=== PATIENT | male | born 1985 | race African-American/Black ===

== ENCOUNTER 2021-11-15 13:44 | Emergency (ER) | payer SELFPAY ==
[2021-11-15] VITALS (10 sets, daily range): BP systolic 104–119; BP diastolic 55–77; PULSE 60–111; RESP 16–24; TEMP 36.5; O2SAT 99–100
--- NOTE | ~2021-11-15 | CT_ITS ---
EXAMINATION: CTA chest PE protocol DATE: 11/15/2021 15:23 INDICATION: Left chest pain. TECHNIQUE: Computed tomography angiography (CTA) of the chest was performed with 100 mL Omnipaque-350 intravenous contrast timed to evaluate the pulmonary arteries. Coronal maximum intensity projection 3D-reconstructions were created by the technologist. Automated exposure control and iterative reconst ruction technique were employed. The dose-length product was 247.12 mGy-cm. COMPARISON: Chest 2 views 11/15/2021 FINDINGS: There is no pneumonia or pleural effusion. The heart size is normal. No pericardial effusio n. There is no pulmonary embolus. There is a benign bone island in T11 vertebral body. IMPRESSION: 1. No pulmonary embolus. Reviewed, dictated and finalized at location A. IMPRESSION: 1. No pulmonary embolus.
--- NOTE | ~2021-11-15 | XR_ITS ---
EXAMINATION: XR chest 2V DATE: 11/15/2021 14:31 INDICATION: Chest pain. TECHNIQUE: Frontal and lateral views of the chest were obtained. COMPARISON: None. FINDINGS: There is no pneumonia, pleural effusion, or pneumothorax. The heart size is normal. IMPRESSION: 1. No acute cardiopulmonary disease. Reviewed, dictated and finalized at location A.
--- NOTE | 2021-11-15 13:54 | ECG_ITS ---
Measurements Intervals [place] Rate: 66 P: 64 ID: 132 QRS: 27 QRSD: 93 T: 17 QT: 376 QTc: 395 Interpretive Statements SINUS RHYTHM WITH SINUS ARRHYTHMIA NORMAL ECG NO PREVIOUS ECG AVAILABLE FOR COMPARISON Electronically Signed On 11-15-2021 16:34:44 CDT by Vikas Vazquez M.D.
--- NOTE | 2021-11-15 14:26 | PC.NURSE ---
Pt to xray
[2021-11-15 14:31] LABS: Prothrombin Time 12.6 Seconds (11.1-14.7)
[2021-11-15 14:32] LABS: Alanine Aminotransferase 29 U/L (6-50); Albumin Level 4.6 g/dL (3.5-5.1); Alkaline Phosphatase 71 U/L (38-126); Anion Gap 10 mmol/L (8-16); Aspartate Amino Transferase 28 U/L (17-59); Bilirubin,Total 0.4 mg/dL (0.2-1.3); Blood Urea Nitrogen 11 mg/dL (9-20); Calcium 9.6 mg/dL (8.4-10.2); Carbon Dioxide 26 mmol/L (22-30); Chloride 104 mmol/L (98-107); Estimated CRCL calculation 81 ml/min; Estimated Glomerular Filt Rate > 60; Glucose 105 mg/dL (65-110); Lipase 42 U/L (23-300); Partial Thromboplastin Time 28.3 SECONDS (22.3-36.8); Potassium 4.3 mmol/L (3.4-5.0); Sodium 140 mmol/L (137-145)
[2021-11-15 14:35] LABS: Hemoglobin 14.3 g/dL (14.0-18.0); Immature Granulocyte Absolute 0.02 K/mm3 (0.00-0.031); Immature Granulocyte Percent A 0.2 % (0-0.5); Lymphocytes Absolute Auto 0.59 K/mm3 (0.9-3.2); Lymphocytes Percent Auto 7.1 % (18.3-44.2); Mean Corpuscular HGB Conc 31.8 g/dl (32-36); Mean Corpuscular Hemoglobin 30.4 pg (26-34); Mean Corpuscular Volume 95.7 fl (80-100); Mean Platelet Volume 10.9 fl (7.4-10.4); Monocytes Absolute Auto 0.3 K/mm3 (0.1-0.6); Monocytes Percent Auto 3.5 % (2.6-8.5); Neutrophils Absolute Auto 7.5 K/mm3 (1.3-6.7); Neutrophils Percent Auto 89.2 % (45.5-73.1); Platelet Count Result 168 k/mm3 (150-375); Red Cell Distribution Width 12.7 % (11.5-14.5); White Blood Count 8.4 K/mm3 (4.5-10.0)
[2021-11-15 14:43] LABS: Troponin I < 0.012 ng/mL (0.000-0.034)
[2021-11-15] MEDS: ASPIRIN 81 MG CHEWABLE TABLET 324 MG PO (14:50)
[2021-11-15] MEDS: KETOROLAC 30 MG/ML VIAL (*BKC) IV PUSH (14:57)
--- NOTE | 2021-11-15 14:57 | PC.NURSE ---
Pt blood sugar 41. Was given apple juice and ham sandwich
[2021-11-15 15:47] LABS: SARS-CoV-2 RNA PCR Negative
[2021-11-15 17:39] LABS: Troponin I < 0.012 ng/mL (0.000-0.034)
[2021-11-15 17:40] LABS: Amphetamine Screen Urine Negative (Negative); Barbiturate Screen Urine Negative (Negative); Benzodiazepines Screen Urine Negative (Negative); Cannabinoid Screen Urine Positive (Negative); Cocaine Screen Urine Negative (Negative); Methadone Screen Urine Negative (Negative); Opiate Screen Urine Negative (Negative); Phencyclidine Screen Urine Negative (Negative)
--- NOTE | 2021-11-15 18:35 | ED.CHESTPAIN ---
HPI - Chest Pain General Chief Complaint: Chest Pain Stated Complaint: chest pain, dizziness Time Seen by Provider: 11/15/21 14:39 Source: RN notes reviewed History of Present Illness HPI narrative: Patient presents emergency department from assisted in police custody for chest pain. History is per the patient as well as a consult police they spoke with the patient was placed under arrest today under a weapons charge they taken the patient to the police department amities at the Police Department when he found out he was going to have to go to assisted he began to experience chest pain most of his chest. Patient states the pain is located left side of his chest and is described as sharp and stabbing is worse when he takes a deep inspiration radiates up into his neck. He denies any fevers or chills vision changes abdominal pain nausea vomiting or any other symptoms Related Data Allergies Allergy/AdvReac Type Severity Reaction Status Date / Time No Known Allergies Allergy Verified 11/15/21 14:00 Review of Systems Review of Systems: Gen.: Denies fevers or chills Eyes: Denies eye pain or visual change ENT: Denies congestion Respiratory: Denies shortness of breath or cough CV: See HPI GI: Denies abdominal pain nausea, emesis or diarrhea Musculoskeletal: Denies back pain or muscle pain Neuro: Denies numbness, tingling, weakness or focal weakness Skin: Denies rash Except as documented, all other systems reviewed and negative Exam Narrative: APPEARANCE: No acute distress, nontoxic, resting in bed EYES: EOMI HEENT: Normocephalic, atraumatic, OMM RESPIRATORY: No respiratory distress Clear to auscultation bilaterally with no rhonchi wheezing or rales. CARDIOVASCULAR: Regular rate and rhythm without murmurs rubs or gallops. Chest: Tender palpation left anterior lateral chest wall pain increased with deep inspiration ABDOMINAL: Soft, nontender, nondistended, no rebound or guarding MUSCULOSKELETAl: Moves all extremities. No clubbing, cyanosis or edema. NEURO: Awake and alert. Following commands, speech normal, no focal deficits SKIN:: Warm, dry. No rashes lesions or abrasions PSYCHIATRIC: Normal affect/mood, Course Course Emergency Course: Discussed with police surgeon with patient patient had no trauma he had been in his car and got out of the car on his own and has been in police custody of the police station when his pain occurred after he found out he was going to be placed in assisted Patient states pain is improved with medication Discussed with patient results of workup and diagnosis. Discussed need for follow-up with primary care, proper use of medication, and reasons to return to the emergency department. Patient understands and agrees to current treatment plan Vital Signs Vital signs: Vital Signs Temperature 97.7 F 11/15/21 13:58 Pulse Rate 62 11/15/21 13:58 Respiratory Rate 16 11/15/21 13:58 Blood Pressure 110/63 11/15/21 13:58 Pulse Oximetry 100 11/15/21 13:58 Oxygen Delivery Room Air 11/15/21 13:58 Temperature 97.7 F 11/15/21 13:58 Pulse Rate 66 11/15/21 18:47 Respiratory Rate 23 H 11/15/21 16:18 Blood Pressure 108/55 L 11/15/21 18:47 Pulse Oximetry 100 11/15/21 18:47 Oxygen Delivery Room Air 11/15/21 13:58 MDM - Chest Pain MDM Narrative Medical decision making narrative: Patient's EKGs and labs are without significant high risk changes. Cardiac risk factors reviewed. Patient is felt likely low risk for ACS and reasonable for further risk stratification testing as an outpatient. CTA of the chest shows no pulmonary embolism aneurysm or pneumonia patient is felt to be a reasonable candidate for continued evaluation as an outpatient Lab Data Result diagrams: 11/15/21 14:11 11/15/21 14:11 Labs: Lab Results 11/15/21 11/15/21 11/15/21 Range/Units 14:11 14:11 14:11 WBC 8.4 (4.5-10.0) K/mm3 RBC 4.70 (4.6-6.20) M/mm3 Hgb 14.3 (14.0-18.0)
== END 2021-11-15 19:07 ==
PROVIDERS: Emergency Provider Emergency Medicine; PCP Emergency Medicine
DX: R07.89 Other chest pain (principal); Z20.822 Contact with and (suspected) exposure to COVID-19
CPT/HCPCS: 36415; 71046; 71275; 80053; 80307; 83690; 84484; 85025; 85610; 85730; 93005; 96374; 99284; A9270; C9803; J1885; Q9967; U0003; U0005

== ENCOUNTER 2021-11-17 12:37 | Emergency (ER) | payer SELFPAY ==
[2021-11-17] VITALS (17 sets, daily range): BP systolic 106–146; BP diastolic 67–98; PULSE 51–78; RESP 16–26; TEMP 36.8; O2SAT 96–99
--- NOTE | ~2021-11-17 | XR_ITS ---
XR chest 2V DATE: 11/17/2021 12:54 INDICATION: Stabbing chest pain for one hour TECHNIQUE: PA and lateral views COMPARISON: 11/15/2021 CT pulmonary scan 11/15/2021 2 view chest FINDINGS: Normal heart size. No hilar or mediastinal enlargement. No pulmonary infiltrate or consolid ation, pleural effusion or pulmonary vascular congestion or pneumothorax. Included skeletal structure s are unremarkable. IMPRESSION: No active cardiopulmonary disease Reviewed, dictated and finalized at location A.
--- NOTE | 2021-11-17 12:40 | ECG_ITS ---
Measurements Intervals [place] Rate: 68 P: 75 [place]: 128 QRS: 69 QRSD: 89 T: 38 QT: 356 QTc: 379 Interpretive Statements SINUS RHYTHM LEFT VENTRICULAR HYPERTROPHY AND ST-T CHANGE [VOLTAGE CRITERIA PLUS ST/T ABNORMALITY] COMPARED TO ECG 11/15/2021 14:06:00 NO SIGNIFICANT DIFFERENCE OTHER THAN LV VOLTAGE IS MORE PROMINENT Electronically Signed On 11-18-2021 14:12:01 CDT by Vikas Vazquez M.D.
[2021-11-17 14:09] LABS: Basophils Percent Auto 0.2 % (0.2-1.2); Hematocrit 42.5 % (42.0-52.0); Hemoglobin 13.7 g/dL (14.0-18.0); Immature Granulocyte Absolute 0.01 K/mm3 (0.00-0.031); Immature Granulocyte Percent A 0.2 % (0-0.5); Lymphocytes Absolute Auto 1.22 K/mm3 (0.9-3.2); Lymphocytes Percent Auto 25.4 % (18.3-44.2); Mean Corpuscular HGB Conc 32.2 g/dl (32-36); Mean Corpuscular Hemoglobin 30.4 pg (26-34); Mean Corpuscular Volume 94.2 fl (80-100); Mean Platelet Volume 10.6 fl (7.4-10.4); Monocytes Absolute Auto 0.3 K/mm3 (0.1-0.6); Monocytes Percent Auto 6.4 % (2.6-8.5); Neutrophils Absolute Auto 3.3 K/mm3 (1.3-6.7); Neutrophils Percent Auto 67.8 % (45.5-73.1); Platelet Count Result 174 k/mm3 (150-375); Red Blood Count 4.51 M/mm3 (4.6-6.20); Red Cell Distribution Width 12.3 % (11.5-14.5); White Blood Count 4.8 K/mm3 (4.5-10.0)
[2021-11-17 14:19] LABS: Alanine Aminotransferase 23 U/L (6-50); Albumin Level 4.6 g/dL (3.5-5.1); Alkaline Phosphatase 77 U/L (38-126); Anion Gap 11 mmol/L (8-16); Aspartate Amino Transferase 25 U/L (17-59); Bilirubin,Total 0.6 mg/dL (0.2-1.3); Blood Urea Nitrogen 10 mg/dL (9-20); Calcium 9.5 mg/dL (8.4-10.2); Carbon Dioxide 24 mmol/L (22-30); Chloride 103 mmol/L (98-107); Estimated CRCL calculation 90 ml/min; Estimated Glomerular Filt Rate > 60; Glucose 93 mg/dL (65-110); Lipase 53 U/L (23-300); Potassium 4.1 mmol/L (3.4-5.0); Sodium 138 mmol/L (137-145)
[2021-11-17 14:20] LABS: INR 1.1; Prothrombin Time 13.3 Seconds (11.1-14.7)
[2021-11-17 14:21] LABS: Partial Thromboplastin Time 29.6 SECONDS (22.3-36.8)
[2021-11-17 14:30] LABS: Troponin I < 0.012 ng/mL (0.000-0.034)
--- NOTE | 2021-11-17 15:39 | ED.GENADULT ---
HPI - General Adult General Chief complaint: Chest Pain Stated complaint: chest pain Time Seen by Provider: 11/17/21 15:38 History of Present Illness HPI narrative: Patient is a 36-year-old male who presents ER with left-sided chest pain. Sharp intermittent. Worse with deep breath. Ongoing since being placed in police custody. No fevers chills or sweats. No sinus congestion sore throat or productive cough. He had similar situation 2 days ago. No history of heart disease. No lower extremity swelling or edema. No hemoptysis. Related Data Allergies Allergy/AdvReac Type Severity Reaction Status Date / Time No Known Allergies Allergy Verified 11/15/21 14:00 Review of Systems Review of Systems: All systems reviewed & are unremarkable except as noted in HPI and below Constitutional: Constitutional: Denies chills and Denies fever(s) Cardiovascular: Cardiovascular: Reports chest pain, Denies rapid heart rate and Denies radiating jaw, neck or arm pain Respiratory: Respiratory: Denies cough and Denies dyspnea Gastrointestinal: Gastrointestinal: Denies abdominal pain, Denies nausea and Denies vomiting PMFSH Past Medical History Medical History (Updated 11/17/21 @ 18:34 by Emigdio Ortiz MD) Anxiety Surgical History Surgical History (Updated 11/17/21 @ 18:34 by Emigdio Ortiz MD) No pertinent past surgical history Social History Social History (Updated 11/17/21 @ 18:34 by Emigdio Ortiz MD) Smoking status: Never smoker Exam Narrative: GENERAL: Well-appearing, well-nourished, and in no acute distress. HEAD: Normocephalic, atraumatic. EYES: PERRL and EOMI. CHEST: Clear to auscultation. No respiratory distress. No reproducible tenderness of the chest HEART: Regular rate and rhythm. Normal peripheral pulses. ABDOMEN: Soft, nontender, nondistended. EXTREMITIES: Normal range of motion. No edema. SKIN: Warm, dry, no rash. NEURO: Alert and oriented x3. PSYCH: Normal mood and affect. Course Course Emergency Course: Troponins negative x2. Negative D-dimer. Discharge into police custody. Vital Signs Vital signs: Vital Signs Temperature 98.2 F 11/17/21 12:44 Pulse Rate 78 11/17/21 12:44 Respiratory Rate 20 11/17/21 12:44 Blood Pressure 146/98 H 11/17/21 12:44 Pulse Oximetry 99 11/17/21 12:44 Oxygen Delivery Room Air 11/17/21 12:44 Temperature 98.2 F 11/17/21 12:44 Pulse Rate 57 L 11/17/21 17:01 Respiratory Rate 26 H 11/17/21 17:01 Blood Pressure 113/72 11/17/21 17:01 Pulse Oximetry 98 11/17/21 16:31 Oxygen Delivery Room Air 11/17/21 12:44 Medical Decision Making Vital Signs Vital Signs: Vital Signs Temperature 98.2 F 11/17/21 12:44 Pulse Rate 78 11/17/21 12:44 Respiratory Rate 20 11/17/21 12:44 Blood Pressure 146/98 H 11/17/21 12:44 Pulse Oximetry 99 11/17/21 12:44 Oxygen Delivery Room Air 11/17/21 12:44 Temperature 98.2 F 11/17/21 12:44 Pulse Rate 57 L 11/17/21 17:01 Respiratory Rate 26 H 11/17/21 17:01 Blood Pressure 113/72 11/17/21 17:01 Pulse Oximetry 98 11/17/21 16:31 Oxygen Delivery Room Air 11/17/21 12:44 Lab Data Result diagrams: 11/17/21 14:02 11/17/21 14:02 Labs: Lab Results 11/17/21 11/17/21 11/17/21 Range/Units 14:02 14:02 14:02 WBC 4.8 (4.5-10.0) K/mm3 RBC 4.51 L (4.6-6.20) M/mm3 Hgb 13.7 L (14.0-18.0) g/dL Hct 42.5 (42.0-52.0) % MCV 94.2 (80-100) fl MCH 30.4 (26-34) pg MCHC 32.2 (32-36) g/dl RDW 12.3 (11.5-14.5) % Plt Count 174 (150-375) k/mm3 MPV 10.6 H (7.4-10.4) fl Immature Gran % (Auto) 0.2 (0-0.5) % Neut % (Auto) 67.8 (45.5-73.1) % Lymph % (Auto) 25.4 (18.3-44.2) % [place] % (Auto) 6.4 (2.6-8.5) % Eos % (Auto) 0.0 (0-4.4) % Baso % (Auto) 0.2 (0.2-1.2) % Lymph # (Auto) 1.22 (0.9-3.2) K/mm3 [place] # (Auto) 0.3 (0.1-0.6) K/mm3 Eos # (Auto) 0.0
[2021-11-17] MEDS: KETOROLAC (*BKC) 60 MG/2 ML VIAL IM (16:25)
[2021-11-17 18:01] LABS: Troponin I < 0.012 ng/mL (0.000-0.034)
[2021-11-17 18:20] LABS: D Dimer < 0.27 ug/mL (<0.48)
== END 2021-11-17 19:12 ==
PROVIDERS: Emergency Medicine; Emergency Provider Emergency Medicine; PCP Emergency Medicine
DX: R07.89 Other chest pain (principal); I51.7 Cardiomegaly
CPT/HCPCS: 36415; 71046; 80053; 83690; 84484; 85025; 85380; 85610; 85730; 93005; 96372; 99284; J1885